=== PATIENT | male | born 2000 | race African-American/Black ===

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

== ENCOUNTER 2019-06-25 19:15 | Emergency (ER) | payer OTHER ==
[~2019-06-25] VITALS: Ht 165.1 cm; Wt 52.3 kg
[2019-06-25 19:39] VITALS: BP 138/67; Ht 165.1 cm; Wt 52.3 kg
== END 2019-06-25 23:27 | disposition home or self-care (01) ==
LOC: ED 19:15
DX: J45.901 Unspecified asthma with (acute) exacerbation (principal)
CPT/HCPCS: 87804; J7512